=== PATIENT | female | born 2000 | race Caucasian/White ===

== ENCOUNTER 2023-09-06 14:59 | Emergency (ER) | payer BC, MEDICAID, OTHER ==
[~2023-09-06] VITALS: Ht 167.6 cm; Wt 99.8 kg
[2023-09-06 16:32] VITALS: BP 132/71; PULSE 128; RESP 20; TEMP 98.2; O2SAT 100
[2023-09-06] MEDS ORDERED: TORADOL IM STA (16:39)
[2023-09-06] MEDS ORDERED: TORADOL ONE (16:43)
[2023-09-06 16:52] VITALS: BP 132/71; PULSE 128; RESP 20; TEMP 98.2; O2SAT 100
[2023-09-06 17:02] LABS: INFLUENZA VIRUS A ANTIGEN NEGATIVE (NEG); INFLUENZA VIRUS B ANTIGEN NEGATIVE (NEG)
[2023-09-06 17:25] VITALS: BP 129/74; PULSE 86; RESP 20; TEMP 98.2; O2SAT 99
== END 2023-09-06 17:28 | disposition home or self-care (01) ==
LOC: ER 14:59
DX: H66.91 Otitis media, unspecified, right ear (principal); J02.9 Acute pharyngitis, unspecified; Z20.822 Contact with and (suspected) exposure to COVID-19; Z98.890 Other specified postprocedural states
CPT/HCPCS: 99284; 87426; 96372; 87070; 87880; 87804 ×2; J1885